=== PATIENT | male | born 1950 | race Caucasian/White ===

== ENCOUNTER → 2020-08-19 | Day surgery (SDC) | payer MEDICARE ==
[2020-08-14 10:17] LABS: BASOPHILS # (AUTO) 0.1 (0.0-0.1); BASOPHILS % 1.1 % (0.0-1.0); EOSINOPHILS # (AUTO) 0.2 (0.0-0.4); EOSINOPHILS % 3.7 % (0.0-6.0); HEMATOCRIT 44.3 % (38.2-49.6); HEMOGLOBIN 14.6 g/dL (14.0-18.0); LYMPHOCYTES # (AUTO) 1.7 (1.0-3.2); LYMPHOCYTES % 31.2 % (18.0-39.1); MEAN CORPUSCULAR HEMOGLOBIN 29.1 pg (28-32); MEAN CORPUSCULAR VOLUME 88.2 fL (81-99); MONOCYTES # (AUTO) 0.5 (0.2-0.8); MONOCYTES % 8.5 % (4.4-11.3); NEUTROPHILS % 55.3 % (38.7-80.0); PLATELET COUNT 150 x10e3/uL (140-360); RED BLOOD COUNT 5.02 x10e6/uL (4.3-5.7); RED CELL DISTRIBUTION WIDTH 12.7 % (11.7-14.4)
[2020-08-14 10:39] LABS: ALANINE AMINOTRANSFERASE 23 IU/L (0-55); ALBUMIN 3.8 g/dL (3.5-5.0); ALBUMIN/GLOBULIN RATIO 1.3 (0.8-2.0); ALKALINE PHOSPHATASE 77 IU/L (40-150); ANION GAP 15.1 mmol/L (8-16); BLOOD UREA NITROGEN 16 mg/dL (7-26); BUN/CREATININE RATIO 16 (6-25); CALCIUM 8.4 mg/dL (8.4-10.2); CARBON DIOXIDE 22 mmol/L (22-29); CHLORIDE 106 mmol/L (98-107); CREATININE, SERUM 0.99 mg/dL (0.72-1.25); EST GLOMERULAR FILTRATION RATE > 60 ML/MIN (60-); GLUCOSE 322 mg/dL (74-118); POTASSIUM 4.1 mmol/L (3.5-5.1); SODIUM 139 mmol/L (136-145)
[2020-08-19] VITALS (9 sets, daily range): BP systolic 96–126; BP diastolic 54–73
[~2020-08-19] VITALS: Ht 177.8 cm; Wt 93.0 kg
[~2020-08-19] MED LIST: ALPRAZOLAM 0.5 MG TAB ONE; ASPIR 8181 MG PO; ASPIRIN 325 MG TAB ONE; ASPIRIN EC81 MG PO; ATENOLOL50 MG PO; ATORVASTATIN CA40 MG PO; Aspirin PO; BIVALRIUDIN 250 MG/VIAL VIAL IV ONE; CENTRUM SILVER1 EAC3 PO; CRESTOR10 MG PO; DIPHENHYDRAMINE HCL 25 MG CAP ONE; FARXIGA10 MG PO; FENTANYL CITRATE/PF 100MCG/2 ML INJ ONE; HEPARIN SOD (PORCINE) 1000 UNIT/ML 30ML ONE; HEPARIN SOD/SOD CHLORIDE 2,000 ML ONE; IOPAMIDOL 370 MG/ML 200 ML INFUS..BTL INJ ONE; JANUVIA100 MG PO; LIDOCAINE HCL 2% LOCAL 20 ML VIAL ONE; METFORMIN HCL1000 MG PO; METFORMIN HCL500 MG PO; METOPROLOL SUCC50 MG PO; MIDAZOLAM HCL 2 MG/2 ML VIAL ONE; NITROGLYCERIN/D5W 200 MCG/ML 250 ML ONE; NORCO 7.5-3251 EACH PO; OMEGA 3 1,0001 EACH PO; PRASUGREL 10 MG TAB ONE; SODIUM CHLORIDE 0.9% 1000ML 1,000 ML ONE; SODIUM CHLORIDE 0.9% 50ML 50 ML ONE; VERAPAMIL HCL 2.5 MG/ML 2 ML VIAL ONE; VITAMIN B-12500 MCG PO
== END | disposition home or self-care (01) ==
LOC: CATH LAB 06:30
PROVIDERS: ATTEND Internal Medicine Interventional Cardiology
DX: I25.119 Atherosclerotic heart disease of native coronary artery with unspecified angina pectoris (principal); R94.39 Abnormal result of other cardiovascular function study; I73.9 Peripheral vascular disease, unspecified; I71.4 Abdominal aortic aneurysm, without rupture; E78.00 Pure hypercholesterolemia, unspecified; E78.5 Hyperlipidemia, unspecified; R09.89 Other specified symptoms and signs involving the circulatory and respiratory systems; I10 Essential (primary) hypertension; E11.9 Type 2 diabetes mellitus without complications; Z01.812 Encounter for preprocedural laboratory examination; Z20.822 Contact with and (suspected) exposure to COVID-19; Z79.84 Long term (current) use of oral hypoglycemic drugs; Z79.82 Long term (current) use of aspirin
CPT/HCPCS: 76937; 93458; C9600; 36415; 80053; 85025; 92928; 99152; 99153; C1725; C1874; C1887; J0583; J1644; J2001; J2250; J3010; J7030; Q9967; U0002

== ENCOUNTER → 2021-04-01 | Outpatient (CLI) | payer MEDICARE ==
[~2021-04-01] MED LIST changes: -ALPRAZOLAM 0.5 MG TAB ONE; -ASPIRIN 325 MG TAB ONE; -BIVALRIUDIN 250 MG/VIAL VIAL IV ONE; -DIPHENHYDRAMINE HCL 25 MG CAP ONE; -FENTANYL CITRATE/PF 100MCG/2 ML INJ ONE; -HEPARIN SOD (PORCINE) 1000 UNIT/ML 30ML ONE; -HEPARIN SOD/SOD CHLORIDE 2,000 ML ONE; -LIDOCAINE HCL 2% LOCAL 20 ML VIAL ONE; -MIDAZOLAM HCL 2 MG/2 ML VIAL ONE; -NITROGLYCERIN/D5W 200 MCG/ML 250 ML ONE; -PRASUGREL 10 MG TAB ONE; +SODIUM CHLORIDE 0.9% 100 ML ONE; -SODIUM CHLORIDE 0.9% 1000ML 1,000 ML ONE; -SODIUM CHLORIDE 0.9% 50ML 50 ML ONE; -VERAPAMIL HCL 2.5 MG/ML 2 ML VIAL ONE
[2021-04-01 08:21] LABS: CREATININE, SERUM 0.89 mg/dL (0.72-1.25)
== END ==
LOC: CT 07:38
PROVIDERS: ATTEND Nurse Practitioner Family
DX: I77.810 Thoracic aortic ectasia (principal)
CPT/HCPCS: 36415; 71275; 82565; 84520; J7050; Q9967

== ENCOUNTER 2021-07-30 11:46 | Inpatient (IN) | payer MEDICARE ==
[~2021-07-30] VITALS: Ht 177.8 cm; Wt 93.9 kg
[~2021-07-30 11:46] MED LIST changes: -IOPAMIDOL 370 MG/ML 200 ML INFUS..BTL INJ ONE; -SODIUM CHLORIDE 0.9% 100 ML ONE
[2021-07-30] MEDS ORDERED: VICTOZA 2-0.6 MG/0.1 (12:55)
[2021-07-30] MEDS ORDERED: ATORVASTATIN CA20 MG PO (12:55)
[2021-07-30] MEDS ORDERED: GLIMEPIRIDE4 MG (12:55)
[2021-07-30] MEDS ORDERED: SODIUM CHLORIDE 0.9% 1000ML 1,000 ML IV SCH (14:00)
[2021-07-30] MEDS ORDERED: DEXAMETHASONE PHOS 4MG/ML 5ML MULTIDOSE VIAL IV ONE (14:00)
[2021-07-30] MEDS ORDERED: CEFTRIAXONE 1 GM in SODIUM CHLORIDE 0.9% 50ML 50 ML IV ONE (14:00)
[2021-07-30] MEDS ORDERED: SODIUM CHLORIDE 0.9% 50ML 50 ML ONE ×2 (14:14→14:29)
[2021-07-30] MEDS ORDERED: IOPAMIDOL 370 MG/ML 200 ML INFUS..BTL INJ ONE (14:14)
[2021-07-30] MEDS ORDERED: DEXAMETHASONE SOD PHOS INJ 4 MG/ML SDV ONE (14:29)
[2021-07-30] MEDS ORDERED: CEFTRIAXONE 1 GM VIAL ONE (14:30)
[2021-07-30] MEDS ORDERED: SODIUM CHLORIDE 0.9% 1000ML 1,000 ML ONE (14:30)
[2021-07-30] MEDS ORDERED: SODIUM CHLORIDE 0.9% 250ML 250 ML ONE (14:30)
[2021-07-30] MEDS ORDERED: ASPIRIN 81 MG CHEW TAB PO ONE (14:45)
[2021-07-30] MEDS ORDERED: SODIUM CHLORIDE FLUSH 10 ML SYR INJ PRN (14:45)
[2021-07-30] MEDS ORDERED: DEXTROSE 50% SYRINGE 50 ML IV PRN (14:45)
[2021-07-30] MEDS ORDERED: ASPIRIN 81 MG CHEW TAB ONE (15:15)
[2021-07-30] MEDS ORDERED: INSULIN REGULAR, HUMAN 100 UNIT/1 ML ONE (15:15)
[2021-07-30] MEDS: INSULIN LISPRO 100 UNIT/1 ML 3ML VIAL SQ SCH ×2 (16:30→20:41)
[2021-07-30 17:52] VITALS: BP 147/103
[2021-07-30 18:17] VITALS: BP 147/103
[2021-07-30 18:20] VITALS: BP 147/103
[2021-07-30] MEDS ORDERED: CRESTOR10 MG PO (18:21)
[2021-07-30] MEDS ORDERED: NEURONTIN100 MG PO (18:21)
[2021-07-30 18:22] VITALS: BP 147/103
[2021-07-30] MEDS ORDERED: HYDRALAZINE HCL 20 MG/ML VIAL IV PRN (18:45)
[2021-07-30 19:25] LABS: CREATINE KINASE MB 2.2 ng/mL (0-5.0)
[2021-07-30 21:36] VITALS: BP 125/94
[2021-07-30 21:49] VITALS: BP 125/94
[2021-07-31] VITALS (9 sets, daily range): BP systolic 121–138; BP diastolic 72–92
[2021-07-31] MEDS ORDERED: METOPROLOL TARTRATE INJ 1 MG/ML VIAL IV PRN (04:30)
[2021-07-31] MEDS: INSULIN LISPRO 100 UNIT/1 ML 3ML VIAL SQ SCH ×4 (07:30→21:27)
[2021-07-31 08:14] LABS: CREATINE KINASE MB 2.7 ng/mL (0-5.0)
[2021-07-31] MEDS ORDERED: SIMVASTATIN 20 MG TAB PO SCH (09:00)
[2021-07-31] MEDS: NON-FORMULARY MEDICATION (Dapagliflozin Propanediol (Farxiga) 10 MG) PO SCH (09:00)
[2021-07-31] MEDS: GABAPENTIN 100 MG CAP PO SCH (09:43)
[2021-07-31] MEDS: ASPIRIN 81 MG ENTERIC COATED PO SCH (09:43)
[2021-07-31] MEDS: CEFTRIAXONE 1 GM in SODIUM CHLORIDE 0.9% 50ML 50 ML IV SCH (09:43)
[2021-07-31] MEDS: MULTIVITAMINS/MINERALS TAB PO SCH (09:43)
[2021-07-31] MEDS: METOPROLOL SUCCINATE 50 MG TAB XL PO SCH (09:44)
[2021-07-31] MEDS: CYANOCOBALAMIN 1,000 MCG TAB PO SCH (09:44)
[2021-07-31] MEDS: OMEGA 3 POLYUNSAT FATTY ACIDS 1000 MG SOFTGEL PO SCH (09:44)
[2021-07-31] MEDS ORDERED: SODIUM CHLORIDE 0.9% 50ML 50 ML ONE (09:58)
[2021-07-31] MEDS ORDERED: DEXAMETHASONE SOD PHOS 10 MG/1 ML VIAL ONE (13:50)
[2021-07-31] MEDS ORDERED: REMDESIVIR IV ONE (13:52)
[2021-07-31] MEDS: DEXAMETHASONE SOD PHOS 10 MG/1 ML VIAL IV SCH (13:53)
[2021-07-31] MEDS ORDERED: SODIUM CHLORIDE 0.9% 100 ML ONE (13:53)
[2021-07-31] MEDS ORDERED: DEXTROSE 50% SYRINGE 50 ML IV PRN (14:00)
[2021-07-31] MEDS ORDERED: REMDESIVIR 100MG 200 MG in SODIUM CHLORIDE 0.9% 100 ML IV ONE (14:00)
[2021-07-31 14:48] LABS: ALBUMIN/GLOBULIN RATIO 0.8 (0.8-2.0); ANION GAP 15.2 mmol/L (8-16); CALCIUM 8.8 mg/dL (8.4-10.2); CREATININE, SERUM 0.92 mg/dL (0.72-1.25); POTASSIUM 4.2 mmol/L (3.5-5.1)
[2021-07-31 15:12] LABS: CREATINE KINASE MB 2.9 ng/mL (0-5.0)
[2021-07-31] MEDS: GLIMEPIRIDE 2 MG TAB PO SCH (17:24)
[2021-07-31] MEDS: ENOXAPARIN SOD INJ 40 MG/0.4 ML SYR SC SCH (17:25)
[2021-08-01] VITALS (9 sets, daily range): BP systolic 111–129; BP diastolic 67–79
[2021-08-01] MEDS: INSULIN LISPRO 100 UNIT/1 ML 3ML VIAL SQ SCH ×4 (08:30→20:35)
[2021-08-01] MEDS: NON-FORMULARY MEDICATION (Dapagliflozin Propanediol (Farxiga) 10 MG) PO SCH (09:00)
[2021-08-01] MEDS: DEXAMETHASONE SOD PHOS 10 MG/1 ML VIAL IV SCH (10:37)
[2021-08-01] MEDS: GLIMEPIRIDE 2 MG TAB PO SCH ×2 (10:37→18:37)
[2021-08-01] MEDS: METOPROLOL SUCCINATE 50 MG TAB XL PO SCH (10:38)
[2021-08-01] MEDS: CYANOCOBALAMIN 1,000 MCG TAB PO SCH (10:38)
[2021-08-01] MEDS: OMEGA 3 POLYUNSAT FATTY ACIDS 1000 MG SOFTGEL PO SCH (10:38)
[2021-08-01] MEDS: ASPIRIN 81 MG ENTERIC COATED PO SCH (10:38)
[2021-08-01] MEDS: MULTIVITAMINS/MINERALS TAB PO SCH (10:38)
[2021-08-01] MEDS: GABAPENTIN 100 MG CAP PO SCH (10:38)
[2021-08-01] MEDS: CEFTRIAXONE 1 GM in SODIUM CHLORIDE 0.9% 50ML 50 ML IV SCH (10:38)
[2021-08-01] MEDS: METFORMIN HCL 500 MG TAB PO SCH ×2 (10:39→18:37)
[2021-08-01 11:38] LABS: BASOPHILS % 0.2 % (0.0-1.0); HEMATOCRIT 42.1 % (38.2-49.6); HEMOGLOBIN 13.6 g/dL (14.0-18.0); LYMPHOCYTES # (AUTO) 1.3 (1.0-3.2); MEAN CORPUSCULAR HEMOGLOBIN 28.9 pg (28-32); MEAN CORPUSCULAR HGB CONC 32.3 g/dL (31-35); MEAN CORPUSCULAR VOLUME 89.6 fL (81-99); MONOCYTES # (AUTO) 0.6 (0.2-0.8); MONOCYTES % 5.7 % (4.4-11.3); NEUTROPHILS # (AUTO) 8.3 (2.1-6.9); NEUTROPHILS % 80.4 % (38.7-80.0); PLATELET COUNT 152 x10e3/uL (140-360); RED CELL DISTRIBUTION WIDTH 13.1 % (11.7-14.4)
[2021-08-01] MEDS ORDERED: GUAIFENESIN 200 MG/10 ML UDC PO PRN (11:45)
[2021-08-01 12:05] LABS: ALBUMIN 2.8 g/dL (3.5-5.0); ALBUMIN/GLOBULIN RATIO 0.8 (0.8-2.0); ANION GAP 12.9 mmol/L (8-16); CALCIUM 8.8 mg/dL (8.4-10.2); CREATININE, SERUM 0.83 mg/dL (0.72-1.25); POTASSIUM 3.9 mmol/L (3.5-5.1)
[2021-08-01] MEDS: REMDESIVIR 100MG 100 MG in SODIUM CHLORIDE 0.9% 100 ML IV SCH (18:37)
[2021-08-01] MEDS: ENOXAPARIN SOD INJ 40 MG/0.4 ML SYR SC SCH (18:37)
[2021-08-02] VITALS (9 sets, daily range): BP systolic 100–112; BP diastolic 64–95
[2021-08-02] MEDS: INSULIN LISPRO 100 UNIT/1 ML 3ML VIAL SQ SCH ×4 (07:30→20:35)
[2021-08-02 08:08] LABS: BASOPHILS % 0.1 % (0.0-1.0); HEMATOCRIT 45.2 % (38.2-49.6); LYMPHOCYTES # (AUTO) 1.6 (1.0-3.2); LYMPHOCYTES % 15.3 % (18.0-39.1); MEAN CORPUSCULAR HEMOGLOBIN 28.9 pg (28-32); MEAN CORPUSCULAR VOLUME 93.4 fL (81-99); MONOCYTES # (AUTO) 0.7 (0.2-0.8); NEUTROPHILS # (AUTO) 8.1 (2.1-6.9); NEUTROPHILS % 77.2 % (38.7-80.0); PLATELET COUNT 171 x10e3/uL (140-360); RED BLOOD COUNT 4.84 x10e6/uL (4.3-5.7); RED CELL DISTRIBUTION WIDTH 13.2 % (11.7-14.4)
[2021-08-02 08:32] LABS: ALBUMIN 2.8 g/dL (3.5-5.0); ALBUMIN/GLOBULIN RATIO 0.8 (0.8-2.0); ANION GAP 14.9 mmol/L (8-16); CALCIUM 8.8 mg/dL (8.4-10.2); CREATININE, SERUM 0.85 mg/dL (0.72-1.25); MAGNESIUM 1.9 MG/DL (1.3-2.1); POTASSIUM 3.9 mmol/L (3.5-5.1)
[2021-08-02] MEDS: METFORMIN HCL 500 MG TAB PO SCH ×2 (08:49→17:30)
[2021-08-02] MEDS: NON-FORMULARY MEDICATION (Dapagliflozin Propanediol (Farxiga) 10 MG) PO SCH (08:49)
[2021-08-02] MEDS: GLIMEPIRIDE 2 MG TAB PO SCH ×2 (08:49→17:30)
[2021-08-02] MEDS: MULTIVITAMINS/MINERALS TAB PO SCH (08:50)
[2021-08-02] MEDS: GABAPENTIN 100 MG CAP PO SCH (08:50)
[2021-08-02] MEDS: METOPROLOL SUCCINATE 50 MG TAB XL PO SCH (08:50)
[2021-08-02] MEDS: CYANOCOBALAMIN 1,000 MCG TAB PO SCH (08:50)
[2021-08-02] MEDS: OMEGA 3 POLYUNSAT FATTY ACIDS 1000 MG SOFTGEL PO SCH (08:50)
[2021-08-02] MEDS: ASPIRIN 81 MG ENTERIC COATED PO SCH (08:50)
[2021-08-02] MEDS: DEXAMETHASONE SOD PHOS 10 MG/1 ML VIAL IV SCH (08:52)
[2021-08-02] MEDS: CEFTRIAXONE 1 GM in SODIUM CHLORIDE 0.9% 50ML 50 ML IV SCH (08:54)
[2021-08-02] MEDS: REMDESIVIR 100MG 100 MG in SODIUM CHLORIDE 0.9% 100 ML IV SCH (12:36)
[2021-08-02] MEDS: ENOXAPARIN SOD INJ 40 MG/0.4 ML SYR SC SCH (17:30)
[2021-08-03 04:00] VITALS: BP 107/74
[2021-08-03 06:46] LABS: ANION GAP 12.8 mmol/L (8-16); CALCIUM 9.1 mg/dL (8.4-10.2); CREATININE, SERUM 0.78 mg/dL (0.72-1.25); POTASSIUM 3.8 mmol/L (3.5-5.1)
[2021-08-03 07:13] LABS: BASOPHILS % 0.1 % (0.0-1.0); EOSINOPHILS % 0.1 % (0.0-6.0); HEMATOCRIT 46.1 % (38.2-49.6); HEMOGLOBIN 14.3 g/dL (14.0-18.0); LYMPHOCYTES # (AUTO) 1.8 (1.0-3.2); LYMPHOCYTES % 18.1 % (18.0-39.1); MEAN CORPUSCULAR HEMOGLOBIN 28.5 pg (28-32); MONOCYTES # (AUTO) 0.6 (0.2-0.8); MONOCYTES % 6.4 % (4.4-11.3); NEUTROPHILS # (AUTO) 7.4 (2.1-6.9); NEUTROPHILS % 74.8 % (38.7-80.0); PLATELET COUNT 194 x10e3/uL (140-360); RED BLOOD COUNT 5.01 x10e6/uL (4.3-5.7); RED CELL DISTRIBUTION WIDTH 13.3 % (11.7-14.4)
[2021-08-03] MEDS: INSULIN LISPRO 100 UNIT/1 ML 3ML VIAL SQ SCH ×3 (07:30→16:30)
[2021-08-03] MEDS: METFORMIN HCL 500 MG TAB PO SCH ×2 (08:00→16:43)
[2021-08-03] MEDS: GLIMEPIRIDE 2 MG TAB PO SCH ×2 (08:00→16:43)
[2021-08-03 08:04] VITALS: BP 114/65
[2021-08-03 08:40] VITALS: BP 114/65
[2021-08-03] MEDS: OMEGA 3 POLYUNSAT FATTY ACIDS 1000 MG SOFTGEL PO SCH (08:53)
[2021-08-03] MEDS: ASPIRIN 81 MG ENTERIC COATED PO SCH (08:53)
[2021-08-03] MEDS: DEXAMETHASONE SOD PHOS 10 MG/1 ML VIAL IV SCH (08:53)
[2021-08-03] MEDS: GABAPENTIN 100 MG CAP PO SCH (08:53)
[2021-08-03] MEDS: MULTIVITAMINS/MINERALS TAB PO SCH (08:53)
[2021-08-03] MEDS: METOPROLOL SUCCINATE 50 MG TAB XL PO SCH (08:54)
[2021-08-03] MEDS: CYANOCOBALAMIN 1,000 MCG TAB PO SCH (08:54)
[2021-08-03] MEDS: NON-FORMULARY MEDICATION (Dapagliflozin Propanediol (Farxiga) 10 MG) PO SCH (09:00)
[2021-08-03 12:02] VITALS: BP 105/63
[2021-08-03] MEDS ORDERED: DEXAMETHASONE4 MG PO (12:37)
[2021-08-03] MEDS: REMDESIVIR 100MG 100 MG in SODIUM CHLORIDE 0.9% 100 ML IV SCH (14:00)
[2021-08-03 15:43] VITALS: BP 112/64
[2021-08-03] MEDS: ENOXAPARIN SOD INJ 40 MG/0.4 ML SYR SC SCH (16:43)
== END 2021-08-03 17:06 | disposition home or self-care (01) | DRG 177 ==
LOC: FSED 12:42 → ERHOLD 14:43 → IMCU 17:49
PROVIDERS: ADMIT Internal Medicine; ATTEND Internal Medicine
PROC: 3E0333Z Introduction of Anti-inflammatory into Peripheral Vein, Percutaneous Approach (ICD-10-PCS; 2021-07-30)
PROC: XW033E5 Introduction of Remdesivir Anti-infective into Peripheral Vein, Percutaneous Approach, New Technology Group 5 (ICD-10-PCS; principal; 2021-07-31)
DX: U07.1 COVID-19 (principal); J12.82 Pneumonia due to coronavirus disease 2019; J96.01 Acute respiratory failure with hypoxia; I10 Essential (primary) hypertension; E78.5 Hyperlipidemia, unspecified; I25.10 Atherosclerotic heart disease of native coronary artery without angina pectoris; Z95.5 Presence of coronary angioplasty implant and graft; Z79.84 Long term (current) use of oral hypoglycemic drugs; I77.810 Thoracic aortic ectasia; E11.42 Type 2 diabetes mellitus with diabetic polyneuropathy; E78.00 Pure hypercholesterolemia, unspecified
CPT/HCPCS: 36415; 71046; 71260; 80048; 80053; 81003; 82550; 82553; 82948; 83735; 83880; 84484; 85025; 85379; 93005; 94799; 96372; 99251; 99284; J0248; J0456; J0696; J1100; J1650; J1817; J7030; J7050; Q9967; U0002

== ENCOUNTER 2021-08-07 15:08 | Inpatient (IN) | payer MEDICARE ==
[~2021-08-07] VITALS: Ht 177.8 cm; Wt 92.1 kg
[~2021-08-07 15:08] MED LIST changes: +ATORVASTATIN CA20 MG PO; +DEXAMETHASONE4 MG PO; +GLIMEPIRIDE4 MG; +NEURONTIN100 MG PO; +VICTOZA 2-0.6 MG/0.1
[2021-08-07] MEDS ORDERED: DEXAMETHASONE SOD PHOS INJ 4 MG/ML SDV IV ONE (17:00)
[2021-08-07] MEDS ORDERED: CEFTRIAXONE 1 GM in SODIUM CHLORIDE 0.9% 50ML 50 ML IV ONE (17:00)
[2021-08-07] MEDS ORDERED: SODIUM CHLORIDE 0.9% 100 ML ONE (17:44)
[2021-08-07] MEDS ORDERED: DEXAMETHASONE SOD PHOS INJ 4 MG/ML SDV ONE (17:44)
[2021-08-07] MEDS ORDERED: SODIUM CHLORIDE 0.9% 50ML 50 ML ONE (17:44)
[2021-08-07] MEDS ORDERED: CEFTRIAXONE 1 GM VIAL ONE (17:45)
[2021-08-07] MEDS ORDERED: SODIUM CHLORIDE FLUSH 10 ML SYR INJ PRN (18:15)
[2021-08-07] MEDS ORDERED: DEXTROSE 50% SYRINGE 50 ML IV PRN (18:15)
[2021-08-07 21:16] VITALS: BP 113/74
[2021-08-07] MEDS: INSULIN LISPRO 100 UNIT/1 ML 3ML VIAL SQ SCH (21:27)
[2021-08-07 22:49] VITALS: BP 113/74
[2021-08-08 00:07] VITALS: BP 134/85
[2021-08-08 06:43] VITALS: BP 131/77
[2021-08-08 07:04] LABS: BASOPHILS % 0.1 % (0.0-1.0); EOSINOPHILS % 0.1 % (0.0-6.0); HEMATOCRIT 43.1 % (38.2-49.6); LYMPHOCYTES # (AUTO) 1.2 (1.0-3.2); LYMPHOCYTES % 14.9 % (18.0-39.1); MEAN CORPUSCULAR HEMOGLOBIN 28.9 pg (28-32); MEAN CORPUSCULAR HGB CONC 32.5 g/dL (31-35); MEAN CORPUSCULAR VOLUME 88.9 fL (81-99); MONOCYTES # (AUTO) 0.7 (0.2-0.8); MONOCYTES % 8.2 % (4.4-11.3); NEUTROPHILS % 75.6 % (38.7-80.0); PLATELET COUNT 264 x10e3/uL (140-360); RED BLOOD COUNT 4.85 x10e6/uL (4.3-5.7); RED CELL DISTRIBUTION WIDTH 12.9 % (11.7-14.4)
[2021-08-08] MEDS: INSULIN LISPRO 100 UNIT/1 ML 3ML VIAL SQ SCH ×4 (07:30→22:52)
[2021-08-08 07:35] LABS: CREATINE KINASE MB 1.2 ng/mL (0-5.0)
[2021-08-08 07:36] LABS: ALBUMIN 2.9 g/dL (3.5-5.0); ALBUMIN/GLOBULIN RATIO 0.8 (0.8-2.0); ANION GAP 14.1 mmol/L (8-16); CALCIUM 8.9 mg/dL (8.4-10.2); CREATININE, SERUM 0.79 mg/dL (0.72-1.25); POTASSIUM 4.1 mmol/L (3.5-5.1)
[2021-08-08 08:00] VITALS: BP_SYST 131; BP_SYST 141; BP_DIAS 75; BP_DIAS 77
[2021-08-08] MEDS: METFORMIN HCL 500 MG TAB PO SCH ×2 (08:35→18:16)
[2021-08-08] MEDS: SIMVASTATIN 40 MG TAB PO SCH (08:35)
[2021-08-08] MEDS: ASPIRIN 81 MG ENTERIC COATED PO SCH (08:35)
[2021-08-08] MEDS: METOPROLOL SUCCINATE 50 MG TAB XL PO SCH (08:35)
[2021-08-08] MEDS: GABAPENTIN 100 MG CAP PO SCH (08:41)
[2021-08-08 14:17] LABS: CREATINE KINASE MB 1.6 ng/mL (0-5.0)
[2021-08-08] MEDS ORDERED: SODIUM CHLORIDE 0.9% 1000ML 1,000 ML ONE (15:53)
[2021-08-08] MEDS ORDERED: SODIUM CHLORIDE 0.9% 50ML 50 ML ONE (16:22)
[2021-08-08] MEDS ORDERED: IOPAMIDOL 370 MG/ML 200 ML INFUS..BTL INJ ONE (16:23)
[2021-08-08] MEDS ORDERED: CEFTRIAXONE 1 GM in SODIUM CHLORIDE 0.9% 50ML 50 ML IV SCH (17:00)
[2021-08-08 17:37] VITALS: BP 110/76
[2021-08-08] MEDS ORDERED: HEPARIN SOD (PORCINE) 5,000 UNIT/ML VIAL IV ONE (18:15)
[2021-08-08] MEDS: PIPERACILLIN/TAZOBACTAM 3.375 GM in SODIUM CHLORIDE 0.9% 50ML 50 ML IV SCH (18:16)
[2021-08-08] MEDS: LINEZOLID 600 MG/D5W 300ML 300 ML IV SCH (18:16)
[2021-08-08] MEDS: DEXAMETHASONE SOD PHOS 10 MG/1 ML VIAL IV SCH (18:16)
[2021-08-08] MEDS ORDERED: HEPARIN 25,000 UNIT DRIP IV ONE (20:33)
[2021-08-08 20:37] VITALS: BP 117/102
[2021-08-08 20:56] LABS: INR 1.07; PROTHROMBIN TIME 14.7 seconds (11.9-14.5)
[2021-08-08 21:00] VITALS: BP 117/102
[2021-08-08] MEDS: HEPARIN 25,000 UNIT 1,500 UNIT in DEXTROSE 5% 250ML 250 ML IV SCH (21:07)
[2021-08-09] VITALS (8 sets, daily range): BP systolic 99–151; BP diastolic 60–84
[2021-08-09] MEDS: PIPERACILLIN/TAZOBACTAM 3.375 GM in SODIUM CHLORIDE 0.9% 50ML 50 ML IV SCH ×5 (00:37→23:24)
[2021-08-09] MEDS: LINEZOLID 600 MG/D5W 300ML 300 ML IV SCH ×2 (02:24→12:31)
[2021-08-09] MEDS: INSULIN LISPRO 100 UNIT/1 ML 3ML VIAL SQ SCH ×4 (07:30→22:51)
[2021-08-09] MEDS: ASPIRIN 81 MG ENTERIC COATED PO SCH (10:01)
[2021-08-09] MEDS: METFORMIN HCL 500 MG TAB PO SCH ×2 (10:01→17:55)
[2021-08-09] MEDS: METOPROLOL SUCCINATE 50 MG TAB XL PO SCH (10:01)
[2021-08-09] MEDS: SIMVASTATIN 40 MG TAB PO SCH (10:01)
[2021-08-09] MEDS: GABAPENTIN 100 MG CAP PO SCH (10:01)
[2021-08-09] MEDS: HEPARIN 25,000 UNIT 1,500 UNIT in DEXTROSE 5% 250ML 250 ML IV SCH (13:00)
[2021-08-09] MEDS: DEXAMETHASONE SOD PHOS 10 MG/1 ML VIAL IV SCH (17:55)
[2021-08-09 21:43] LABS: CREATINE KINASE MB 1.2 ng/mL (0-5.0)
[2021-08-10] VITALS (7 sets, daily range): BP systolic 90–146; BP diastolic 56–88
[2021-08-10] MEDS: LINEZOLID 600 MG/D5W 300ML 300 ML IV SCH ×2 (03:52→16:29)
[2021-08-10 04:32] LABS: BASOPHILS % 0.1 % (0.0-1.0); HEMATOCRIT 42.9 % (38.2-49.6); LYMPHOCYTES % 11.1 % (18.0-39.1); MEAN CORPUSCULAR HEMOGLOBIN 28.9 pg (28-32); MEAN CORPUSCULAR HGB CONC 32.6 g/dL (31-35); MEAN CORPUSCULAR VOLUME 88.6 fL (81-99); MONOCYTES # (AUTO) 0.6 (0.2-0.8); MONOCYTES % 6.7 % (4.4-11.3); NEUTROPHILS # (AUTO) 7.4 (2.1-6.9); NEUTROPHILS % 81.2 % (38.7-80.0); PLATELET COUNT 226 x10e3/uL (140-360); RED BLOOD COUNT 4.84 x10e6/uL (4.3-5.7); RED CELL DISTRIBUTION WIDTH 12.9 % (11.7-14.4)
[2021-08-10 04:51] LABS: ALBUMIN 2.7 g/dL (3.5-5.0); ALBUMIN/GLOBULIN RATIO 0.8 (0.8-2.0); CALCIUM 8.4 mg/dL (8.4-10.2); CREATININE, SERUM 0.73 mg/dL (0.72-1.25)
[2021-08-10] MEDS: PIPERACILLIN/TAZOBACTAM 3.375 GM in SODIUM CHLORIDE 0.9% 50ML 50 ML IV SCH ×4 (07:06→22:23)
[2021-08-10] MEDS: ASPIRIN 81 MG ENTERIC COATED PO SCH (10:19)
[2021-08-10] MEDS: GABAPENTIN 100 MG CAP PO SCH (10:19)
[2021-08-10] MEDS: METFORMIN HCL 500 MG TAB PO SCH ×2 (10:19→16:29)
[2021-08-10] MEDS: METOPROLOL SUCCINATE 50 MG TAB XL PO SCH (10:20)
[2021-08-10] MEDS: SIMVASTATIN 40 MG TAB PO SCH (10:20)
[2021-08-10] MEDS: INSULIN LISPRO 100 UNIT/1 ML 3ML VIAL SQ SCH ×4 (10:21→22:20)
[2021-08-10] MEDS: HEPARIN 25,000 UNIT 1,500 UNIT in DEXTROSE 5% 250ML 250 ML IV SCH (10:27)
[2021-08-10] MEDS: DEXAMETHASONE SOD PHOS 10 MG/1 ML VIAL IV SCH (16:29)
[2021-08-11 01:04] VITALS: BP 110/73
[2021-08-11 05:18] VITALS: BP 115/73
[2021-08-11] MEDS: PIPERACILLIN/TAZOBACTAM 3.375 GM in SODIUM CHLORIDE 0.9% 50ML 50 ML IV SCH (05:38)
[2021-08-11] MEDS ORDERED: LINEZOLID 600 MG TAB PO SCH (06:00)
[2021-08-11] MEDS: INSULIN LISPRO 100 UNIT/1 ML 3ML VIAL SQ SCH (07:30)
[2021-08-11 07:47] VITALS: BP 106/69
[2021-08-11 08:55] VITALS: BP 119/70
[2021-08-11] MEDS: METFORMIN HCL 500 MG TAB PO SCH (09:28)
[2021-08-11] MEDS: GABAPENTIN 100 MG CAP PO SCH (09:28)
[2021-08-11] MEDS: ASPIRIN 81 MG ENTERIC COATED PO SCH (09:28)
[2021-08-11] MEDS: SIMVASTATIN 40 MG TAB PO SCH (09:29)
[2021-08-11] MEDS: METOPROLOL SUCCINATE 50 MG TAB XL PO SCH (09:29)
[2021-08-11] MEDS ORDERED: ELIQUIS5 MG PO (09:44)
[2021-08-11] MEDS ORDERED: KEFLEX125 MG/5 M PO (09:44)
== END 2021-08-11 10:20 | disposition home or self-care (01) | DRG 177 ==
LOC: FSED 15:20 → ERHOLD 18:08 → IMCU 20:26
PROVIDERS: ADMIT Internal Medicine; ATTEND Internal Medicine
PROC: 3E0333Z Introduction of Anti-inflammatory into Peripheral Vein, Percutaneous Approach (ICD-10-PCS; principal; 2021-08-07)
PROC: 5A0935A Assistance with Respiratory Ventilation, Less than 24 Consecutive Hours, High Flow/Velocity Cannula (ICD-10-PCS; 2021-08-08)
DX: U07.1 COVID-19 (principal); J12.82 Pneumonia due to coronavirus disease 2019; J96.01 Acute respiratory failure with hypoxia; J15.9 Unspecified bacterial pneumonia; I26.99 Other pulmonary embolism without acute cor pulmonale; I25.10 Atherosclerotic heart disease of native coronary artery without angina pectoris; I10 Essential (primary) hypertension; E78.5 Hyperlipidemia, unspecified; E11.65 Type 2 diabetes mellitus with hyperglycemia; Z95.5 Presence of coronary angioplasty implant and graft; Z82.49 Family history of ischemic heart disease and other diseases of the circulatory system; E11.42 Type 2 diabetes mellitus with diabetic polyneuropathy; Z79.82 Long term (current) use of aspirin; Z79.84 Long term (current) use of oral hypoglycemic drugs
CPT/HCPCS: 36415; 71045; 71046; 71260; 80053; 82550; 82553; 82948; 83735; 83880; 84484; 85025; 85610; 85730; 94799; 96372; 99251; 99284; J0456; J0696; J1100; J1644; J2020; J2543; J7030; J7050; Q9967; U0002

== ENCOUNTER → 2021-10-28 | Outpatient (CLI) | payer MEDICARE ==
[~2021-10-28] MED LIST changes: +ELIQUIS5 MG PO; +IOPAMIDOL 370 MG/ML 100 ML INFUS..BTL INJ ONE; +KEFLEX125 MG/5 M PO; +SODIUM CHLORIDE 0.9% 50ML 50 ML ONE
[2021-10-28 09:12] LABS: CREATININE, SERUM 0.99 mg/dL (0.72-1.25)
== END ==
LOC: CT 08:11
PROVIDERS: ATTEND Internal Medicine
DX: I26.99 Other pulmonary embolism without acute cor pulmonale (principal)
CPT/HCPCS: 36415; 71260; 82565; 84520; Q9967

== ENCOUNTER → 2023-10-19 | Day surgery (SDC) | payer MEDICARE ==
[2023-10-13 11:17] LABS: BASOPHILS % 0.7 % (0.0-1.0); EOSINOPHILS % 6.5 % (0.0-6.0); HEMATOCRIT 45.1 % (38.2-49.6); HEMOGLOBIN 14.4 g/dL (14.0-18.0); LYMPHOCYTES % 25.4 % (18.0-39.1); MEAN CORPUSCULAR HEMOGLOBIN 28.7 pg (28-32); MEAN CORPUSCULAR HGB CONC 31.9 g/dL (31-35); MEAN CORPUSCULAR VOLUME 89.8 fL (81-99); MONOCYTES % 6.6 % (4.4-11.3); NEUTROPHILS # (AUTO) 5.1 (2.1-6.9); NEUTROPHILS % 60.6 % (38.7-80.0); PLATELET COUNT 179 x10e3/uL (140-360); RED BLOOD COUNT 5.02 x10e6/uL (4.3-5.7); RED CELL DISTRIBUTION WIDTH 13.5 % (11.7-14.4); WHITE BLOOD COUNT 8.44 x10e3/uL (4.8-10.8)
[2023-10-13 11:18] LABS: BASOPHILS # (AUTO) 0.1 (0.0-0.1); EOSINOPHILS # (AUTO) 0.6 (0.0-0.4); LYMPHOCYTES # (AUTO) 2.1 (1.0-3.2); MONOCYTES # (AUTO) 0.6 (0.2-0.8)
[2023-10-13 11:41] LABS: ANION GAP 15.5 mmol/L (8-16); CALCIUM 10.1 mg/dL (8.4-10.2); CREATININE, SERUM 1.02 mg/dL (0.72-1.25); POTASSIUM 4.5 mmol/L (3.5-5.1)
[~2023-10-19] MED LIST changes: +AMIODARONE HCL200 MG PO; +CEFTIN PO; +CEFTRIAXONE 1 GM VIAL ONE; +CIPRO500 MG PO; +DEXAMETHASONE SOD PHOS INJ 4 MG/ML SDV ONE; +DULCOLAX SUPP10 MG PR; +FENTANYL CITRATE/PF 100MCG/2 ML INJ ONE; +GEMTESA75 MG; -IOPAMIDOL 370 MG/ML 100 ML INFUS..BTL INJ ONE; +IOPAMIDOL 610MG/1ML 300 MG/ML VIAL IV ONE; +LEVEMIR100 UNIT/1 SQ; +LIDOCAINE HCL 2% LOCAL INJ 5 ML SDV VIAL INJ ONE; +METOPROLOL TART50 MG PO; +MIRALAX17 GM PO; +ONDANSETRON HCL INJ 2MG/ML 2ML 2 MG/ML VIAL ONE; +OZEMPIC1 MG/0.71; +PHENAZOPYRIDINE HCL 100 MG TAB ONE; +PROPOFOL IV EMULSION 10 MG/ML 20 ML VIAL ONE; +SEVOFLURANE INHAL SOLN 250 ML PEN BTL ONE; -SODIUM CHLORIDE 0.9% 50ML 50 ML ONE; +TYLENOL 3 PO; +VESICARE5 MG PO
[2023-10-19] MEDS: LACTATED RINGER'S 1,000 ML ONE (06:29)
[2023-10-19] MEDS: CEFTRIAXONE 1 GM VIAL ONE (06:29)
[2023-10-19] MEDS: GENTAMICIN 80MG/NS 100 ML 200 ML IV ONE (06:29)
[2023-10-19 09:01] VITALS: TEMP 97.8
[2023-10-19] MEDS: PHENAZOPYRIDINE HCL 100 MG TAB PO ONE ×2 (09:45)
[2023-10-19 10:05] VITALS: BP 149/79; PULSE 58; RESP 16; O2SAT 97
== END | disposition home or self-care (01) ==
LOC: OR 05:42
PROVIDERS: ATTEND Urology
DX: N20.1 Calculus of ureter (principal); N20.0 Calculus of kidney; N13.30 Unspecified hydronephrosis; Z46.6 Encounter for fitting and adjustment of urinary device; N40.0 Benign prostatic hyperplasia without lower urinary tract symptoms; N32.89 Other specified disorders of bladder; N28.89 Other specified disorders of kidney and ureter; G47.33 Obstructive sleep apnea (adult) (pediatric); I25.10 Atherosclerotic heart disease of native coronary artery without angina pectoris; I10 Essential (primary) hypertension; E78.5 Hyperlipidemia, unspecified; E11.9 Type 2 diabetes mellitus without complications; K75.9 Inflammatory liver disease, unspecified; Z01.810 Encounter for preprocedural cardiovascular examination; Z01.812 Encounter for preprocedural laboratory examination; Z01.818 Encounter for other preprocedural examination; Z79.02 Long term (current) use of antithrombotics/antiplatelets; Z79.82 Long term (current) use of aspirin; Z79.84 Long term (current) use of oral hypoglycemic drugs; Z79.85 Long-term (current) use of injectable non-insulin antidiabetic drugs; Z79.4 Long term (current) use of insulin; Z79.899 Other long term (current) drug therapy
CPT/HCPCS: 36415 ×2; 52332; 52352; 71046; 74018; 74420; 80048; 82948; 84550; 85025; 88300; 93005; C1769; C2617; J0696; J1100; J1580; J2001; J2405; J2704; J3010; J7121; Q9967

== ENCOUNTER 2023-10-31 19:07 | Inpatient (IN) | payer MEDICARE ==
[~2023-10-31] VITALS: Ht 177.8 cm; Wt 91.6 kg
[~2023-10-31 19:07] MED LIST changes: -AMIODARONE HCL200 MG PO; -CEFTRIAXONE 1 GM VIAL ONE; -CIPRO500 MG PO; -DEXAMETHASONE SOD PHOS INJ 4 MG/ML SDV ONE; -DULCOLAX SUPP10 MG PR; -FENTANYL CITRATE/PF 100MCG/2 ML INJ ONE; -IOPAMIDOL 610MG/1ML 300 MG/ML VIAL IV ONE; -LIDOCAINE HCL 2% LOCAL INJ 5 ML SDV VIAL INJ ONE; -METOPROLOL TART50 MG PO; -MIRALAX17 GM PO; -ONDANSETRON HCL INJ 2MG/ML 2ML 2 MG/ML VIAL ONE; -PHENAZOPYRIDINE HCL 100 MG TAB ONE; -PROPOFOL IV EMULSION 10 MG/ML 20 ML VIAL ONE; -SEVOFLURANE INHAL SOLN 250 ML PEN BTL ONE
[2023-10-31] MEDS ORDERED: SODIUM CHLORIDE 0.9% 100 ML ONE (20:26)
[2023-10-31] MEDS ORDERED: IOPAMIDOL 370 MG/ML 100 ML INFUS..BTL INJ ONE (20:26)
[2023-10-31 20:51] LABS: BASOPHILS # (AUTO) 0.1 (0.0-0.1); BASOPHILS % 0.3 % (0.0-1.0); EOSINOPHILS % 0.1 % (0.0-6.0); HEMOGLOBIN 14.2 g/dL (14.0-18.0); LYMPHOCYTES # (AUTO) 0.8 (1.0-3.2); LYMPHOCYTES % 3.6 % (18.0-39.1); MEAN CORPUSCULAR HEMOGLOBIN 28.7 pg (28-32); MEAN CORPUSCULAR HGB CONC 32.3 g/dL (31-35); MEAN CORPUSCULAR VOLUME 89.1 fL (81-99); MONOCYTES # (AUTO) 1.8 (0.2-0.8); MONOCYTES % 7.7 % (4.4-11.3); NEUTROPHILS % 87.3 % (38.7-80.0); PLATELET COUNT 156 x10e3/uL (140-360); RED BLOOD COUNT 4.94 x10e6/uL (4.3-5.7); RED CELL DISTRIBUTION WIDTH 14.2 % (11.7-14.4); WHITE BLOOD COUNT 22.87 x10e3/uL (4.8-10.8)
[2023-10-31 21:07] LABS: ALBUMIN 3.6 g/dL (3.5-5.0); ANION GAP 20.7 mmol/L (8-16); BILIRUBIN,TOTAL 0.8 mg/dL (0.2-1.2); CALCIUM 9.7 mg/dL (8.4-10.2); CREATININE, SERUM 1.24 mg/dL (0.72-1.25); POTASSIUM 3.7 mmol/L (3.5-5.1); TOTAL PROTEIN 7.2 g/dL (6.5-8.1); TROPONIN I 0.009 ng/mL (0-0.300)
[2023-10-31] MEDS: SODIUM CHLORIDE 0.9% 1000ML 1,000 ML IV STA (21:12)
[2023-10-31] MEDS: ACETAMINOPHEN 325 MG TAB PO STA (21:13)
[2023-10-31 22:03] LABS: BILIRUBIN,URINE NEGATIVE (NEGATIVE); CLARITY,URINE CLEAR (CLEAR); COLOR,URINE YELLOW (YELLOW); GLUCOSE, URINE 500 (NEGATIVE); KETONES,URINE 2+ (NEGATIVE); LEUKOCYTE ESTERASE ,URINE NEGATIVE (NEGATIVE); NITRITE,URINE POSITIVE (NEGATIVE); PH,URINE 5.5 (5 - 7); PROTEIN,URINE DIPSTICK >=300 (NEGATIVE); URINE UROBILINOGEN 0.2 mg/dL (0.2 - 1)
[2023-10-31 22:10] LABS: BACTERIA,URINE MANY /HPF; EPITHELIAL CELLS,URINE FEW /LPF; WBC,URINE (MAN) 21-50 /HPF (0-5)
[2023-10-31] MEDS ORDERED: Morphine 4mg INJECTION 4 MG/ML INJ IV PRN (22:30)
[2023-10-31] MEDS ORDERED: ONDANSETRON HCL INJ 2MG/ML 2ML 2 MG/ML VIAL IV PRN (22:30)
[2023-10-31 22:51] VITALS: PULSE 97; RESP 18; O2SAT 97
[2023-11-01] VITALS (10 sets, daily range): BP systolic 116–134; BP diastolic 61–76; PULSE 84–131; RESP 18–21; TEMP 98.5–103; O2SAT 95–98
[2023-11-01] MEDS: SODIUM CHLORIDE 0.9% 1000ML 1,000 ML IV SCH (01:41)
[2023-11-01 05:28] LABS: BASOPHILS # (AUTO) 0.1 (0.0-0.1); BASOPHILS % 0.2 % (0.0-1.0); HEMATOCRIT 40.9 % (38.2-49.6); HEMOGLOBIN 13.6 g/dL (14.0-18.0); LYMPHOCYTES # (AUTO) 1.2 (1.0-3.2); LYMPHOCYTES % 5.3 % (18.0-39.1); MEAN CORPUSCULAR HEMOGLOBIN 29.5 pg (28-32); MEAN CORPUSCULAR HGB CONC 33.3 g/dL (31-35); MEAN CORPUSCULAR VOLUME 88.7 fL (81-99); MONOCYTES # (AUTO) 1.4 (0.2-0.8); MONOCYTES % 6.3 % (4.4-11.3); NEUTROPHILS # (AUTO) 19.1 (2.1-6.9); NEUTROPHILS % 85.6 % (38.7-80.0); PLATELET COUNT 138 x10e3/uL (140-360); RED BLOOD COUNT 4.61 x10e6/uL (4.3-5.7); RED CELL DISTRIBUTION WIDTH 14.4 % (11.7-14.4); WHITE BLOOD COUNT 22.26 x10e3/uL (4.8-10.8)
[2023-11-01] MEDS: METOPROLOL TARTRATE 25 MG TAB PO SCH (05:44)
[2023-11-01] MEDS: METOPROLOL TARTRATE INJ 1 MG/ML VIAL IV ONE (05:45)
[2023-11-01 05:56] LABS: ALBUMIN 3.2 g/dL (3.5-5.0); ANION GAP 17.7 mmol/L (8-16); BILIRUBIN,TOTAL 0.8 mg/dL (0.2-1.2); CALCIUM 9.4 mg/dL (8.4-10.2); CREATININE, SERUM 1.31 mg/dL (0.72-1.25); POTASSIUM 3.7 mmol/L (3.5-5.1); TOTAL PROTEIN 6.5 g/dL (6.5-8.1)
[2023-11-01 06:28] LABS: TROPONIN I 0.016 ng/mL (0-0.300)
[2023-11-01] MEDS ORDERED: HEPARIN 25,000 UNIT/D5W 250ML 1,000 UNIT in DEXTROSE 5% 250ML 250 ML IV SCH (07:45)
[2023-11-01] MEDS ORDERED: DEXTROSE 50% SYRINGE 50 ML IV PRN (07:45)
[2023-11-01] MEDS: SENNOSIDES 8.6 MG TAB PO SCH (09:00)
[2023-11-01] MEDS ORDERED: SIMVASTATIN 40 MG TAB PO SCH (09:00)
[2023-11-01] MEDS ORDERED: HEPARIN SOD (PORCINE) 1000 UNIT/ML SDV ONE (09:12)
[2023-11-01] MEDS ORDERED: PIPERACILLIN/TAZOBACTAM 3.375 GM VIAL ONE (09:12)
[2023-11-01] MEDS ORDERED: METOPROLOL TARTRATE 25 MG TAB ONE (09:12)
[2023-11-01] MEDS ORDERED: METOPROLOL TARTRATE INJ 1 MG/ML VIAL ONE (09:12)
[2023-11-01] MEDS ORDERED: Sodium Chloride 0.9% 50ML Bag ONE (09:12)
[2023-11-01] MEDS ORDERED: SODIUM CHLORIDE 0.9% 1000 ML BAG ONE (09:12)
[2023-11-01 09:21] LABS: BAND NEUTROPHILS % (MANUAL) 6 %; LYMPHOCYTES % (MANUAL) 9 % (19-48); MONOCYTES % (MANUAL) 6 % (3.4-9.0); NEUTROPHILS % (MANUAL) 79 % (40-74); PLATELET ESTIMATE SLIGHTLY DECREASED; PLATELET MORPHOLOGY COMMENT NORMAL; RBC MORPHOLOGY COMMENT NORMAL
[2023-11-01] MEDS: DOCUSATE SODIUM 100 MG CAP PO SCH (10:27)
[2023-11-01] MEDS: ASPIRIN 81 MG ENTERIC COATED PO SCH (10:27)
[2023-11-01] MEDS: HEPARIN 25,000 UNIT/D5W 250ML 1,000 UNIT in DEXTROSE 5% 250ML 250 ML IV SCH (10:35)
[2023-11-01] MEDS: HEPARIN SOD (PORCINE) 5,000 UNIT/ML VIAL IV ONE (10:40)
[2023-11-01] MEDS ORDERED: IOPAMIDOL 370 MG/ML 100 ML INFUS..BTL INJ ONE (13:15)
[2023-11-01] MEDS ORDERED: SODIUM CHLORIDE 0.9% INJ 100 ML BAG ONE (13:15)
[2023-11-01] MEDS: INSULIN LISPRO 100 UNIT/1 ML 3ML VIAL SQ SCH (13:54)
[2023-11-01 17:35] LABS: CREATINE KINASE 296 IU/L (30-200)
[2023-11-01 17:48] LABS: TROPONIN I < 0.05 ng/mL (0.0-0.40)
[2023-11-01] MEDS: CRESTOR 10MG PO SCH (21:25)
[2023-11-01] MEDS: INSULIN GLARGINE 100 UNITS/ML VIAL SQ SCH (21:38)
[2023-11-01] MEDS: ACETAMINOPHEN 325 MG TAB PO PRN (23:43)
[2023-11-02] VITALS (8 sets, daily range): BP systolic 99–136; BP diastolic 52–80; PULSE 60–120; RESP 17–18; TEMP 98.7–102.1; O2SAT 95–98
[2023-11-02 05:36] LABS: BASOPHILS # (AUTO) 0.1 (0.0-0.1); BASOPHILS % 0.4 % (0.0-1.0); EOSINOPHILS % 0.1 % (0.0-6.0); HEMOGLOBIN 11.6 g/dL (14.0-18.0); LYMPHOCYTES % 7.2 % (18.0-39.1); MEAN CORPUSCULAR HEMOGLOBIN 28.6 pg (28-32); MEAN CORPUSCULAR HGB CONC 32.2 g/dL (31-35); MEAN CORPUSCULAR VOLUME 88.7 fL (81-99); MONOCYTES # (AUTO) 0.8 (0.2-0.8); NEUTROPHILS % 82.3 % (38.7-80.0); PLATELET COUNT 119 x10e3/uL (140-360); RED BLOOD COUNT 4.06 x10e6/uL (4.3-5.7); RED CELL DISTRIBUTION WIDTH 14.2 % (11.7-14.4); WHITE BLOOD COUNT 13.39 x10e3/uL (4.8-10.8)
[2023-11-02 06:13] LABS: ALBUMIN 2.4 g/dL (3.5-5.0); ALBUMIN/GLOBULIN RATIO 0.8 (0.8-2.0); ANION GAP 13.4 mmol/L (8-16); BILIRUBIN,TOTAL 0.5 mg/dL (0.2-1.2); CALCIUM 8.5 mg/dL (8.4-10.2); CREATININE, SERUM 1.5 mg/dL (0.72-1.25); MAGNESIUM 2.2 MG/DL (1.3-2.1); TOTAL PROTEIN 5.5 g/dL (6.5-8.1)
[2023-11-02 06:14] LABS: POTASSIUM 3.4 mmol/L (3.5-5.1)
[2023-11-02] MEDS: POLYETHYLENE GLYCOL 3350 17 GM PACK PO SCH (09:00)
[2023-11-02] MEDS: BISACODYL 10 MG SUPP PR PRN (10:32)
[2023-11-02 10:36] LABS: BAND NEUTROPHILS % (MANUAL) 3 %; LYMPHOCYTES % (MANUAL) 3 % (19-48); MONOCYTES % (MANUAL) 6 % (3.4-9.0); NEUTROPHILS % (MANUAL) 88 % (40-74); PLATELET ESTIMATE SLIGHTLY DECREASED; PLATELET MORPHOLOGY COMMENT NORMAL; RBC MORPHOLOGY COMMENT NORMAL
[2023-11-02] MEDS ORDERED: ACETAMINOPHEN 325 MG TAB ONE (12:43)
[2023-11-02] MEDS ORDERED: PIPERACILLIN/TAZOBACTAM 3.375 GM VIAL ONE (12:43)
[2023-11-02] MEDS ORDERED: SENNOSIDES 8.6 MG TAB ONE (12:43)
[2023-11-02] MEDS ORDERED: Sodium Chloride 0.9% 50ML Bag ONE (12:43)
[2023-11-02] MEDS ORDERED: BISACODYL 10 MG SUPP PR ONE (12:43)
[2023-11-02] MEDS ORDERED: METOPROLOL TARTRATE 25 MG TAB ONE (12:43)
[2023-11-02] MEDS ORDERED: HEPARIN 25,000 UNIT DRIP IV ONE (12:43)
[2023-11-02] MEDS ORDERED: CRESTOR 10MG PO ONE (19:15)
[2023-11-03] VITALS (8 sets, daily range): BP systolic 125–144; BP diastolic 60–97; PULSE 50–123; RESP 18–19; TEMP 98.8–99.6; O2SAT 95–99
[2023-11-03 06:00] LABS: BASOPHILS % 0.5 % (0.0-1.0); EOSINOPHILS # (AUTO) 0.2 (0.0-0.4); EOSINOPHILS % 1.7 % (0.0-6.0); HEMOGLOBIN 11.9 g/dL (14.0-18.0); LYMPHOCYTES % 11.3 % (18.0-39.1); MEAN CORPUSCULAR HEMOGLOBIN 28.4 pg (28-32); MEAN CORPUSCULAR HGB CONC 32.2 g/dL (31-35); MEAN CORPUSCULAR VOLUME 88.3 fL (81-99); MONOCYTES # (AUTO) 0.6 (0.2-0.8); MONOCYTES % 7.2 % (4.4-11.3); NEUTROPHILS # (AUTO) 6.8 (2.1-6.9); NEUTROPHILS % 78.7 % (38.7-80.0); PLATELET COUNT 120 x10e3/uL (140-360); RED BLOOD COUNT 4.19 x10e6/uL (4.3-5.7); RED CELL DISTRIBUTION WIDTH 14.2 % (11.7-14.4)
[2023-11-03 06:45] LABS: ALBUMIN 2.4 g/dL (3.5-5.0); ALBUMIN/GLOBULIN RATIO 0.7 (0.8-2.0); ANION GAP 12.3 mmol/L (8-16); BILIRUBIN,TOTAL 0.5 mg/dL (0.2-1.2); CALCIUM 8.3 mg/dL (8.4-10.2); CREATININE, SERUM 1.21 mg/dL (0.72-1.25); TOTAL PROTEIN 5.7 g/dL (6.5-8.1)
[2023-11-03 06:50] LABS: POTASSIUM 3.3 mmol/L (3.5-5.1)
[2023-11-03] MEDS ORDERED: MAGNESIUM HYDROXIDE 30 ML UDC ONE (11:51)
[2023-11-03] MEDS ORDERED: ASPIRIN 81 MG ENTERIC COATED PO ONE (11:51)
[2023-11-03] MEDS ORDERED: POTASSIUM CHLORIDE 10MEQ EA ONE (11:52)
[2023-11-03] MEDS ORDERED: BISACODYL 10 MG SUPP PR ONE (11:52)
[2023-11-03] MEDS: POTASSIUM CHLORIDE 10MEQ EA PO ONE (11:54)
[2023-11-03] MEDS: MAGNESIUM HYDROXIDE 30 ML UDC PO ONE (11:54)
[2023-11-03] MEDS: BISACODYL 10 MG SUPP PR ONE (12:10)
[2023-11-03] MEDS ORDERED: APIXABAN 5 MG TABLET ONE ×2 (12:50→17:27)
[2023-11-03] MEDS ORDERED: AMIODARONE HCL 200 MG TAB ONE ×2 (12:50→17:27)
[2023-11-03] MEDS ORDERED: PIPERACILLIN/TAZOBACTAM 3.375 GM VIAL ONE (12:51)
[2023-11-03] MEDS: APIXABAN 5 MG TABLET PO SCH (12:54)
[2023-11-03] MEDS: AMIODARONE HCL 200 MG TAB PO SCH (12:54)
[2023-11-03] MEDS ORDERED: ONDANSETRON HCL 4 MG ORAL DISINTEGRATING TAB PO PRN (13:00)
[2023-11-03] MEDS ORDERED: METOPROLOL TARTRATE 50 MG TAB ONE (17:27)
[2023-11-03] MEDS: METOPROLOL TARTRATE 50 MG TAB PO SCH (17:49)
[2023-11-03] MEDS: INSULIN GLARGINE 100 UNITS/ML VIAL SQ SCH (20:58)
[2023-11-04] VITALS: BP 125/82; PULSE 64; RESP 18; TEMP 99.9; O2SAT 97
[2023-11-04 04:00] VITALS: BP 134/79; PULSE 78; RESP 20; TEMP 98.3; O2SAT 99
[2023-11-04 05:58] LABS: BASOPHILS % 0.4 % (0.0-1.0); EOSINOPHILS # (AUTO) 0.2 (0.0-0.4); EOSINOPHILS % 2.8 % (0.0-6.0); HEMATOCRIT 36.3 % (38.2-49.6); HEMOGLOBIN 11.4 g/dL (14.0-18.0); LYMPHOCYTES % 15.3 % (18.0-39.1); MEAN CORPUSCULAR HEMOGLOBIN 28.1 pg (28-32); MEAN CORPUSCULAR HGB CONC 31.4 g/dL (31-35); MEAN CORPUSCULAR VOLUME 89.6 fL (81-99); MONOCYTES # (AUTO) 0.6 (0.2-0.8); MONOCYTES % 9.3 % (4.4-11.3); NEUTROPHILS # (AUTO) 4.9 (2.1-6.9); NEUTROPHILS % 71.9 % (38.7-80.0); PLATELET COUNT 130 x10e3/uL (140-360); RED BLOOD COUNT 4.05 x10e6/uL (4.3-5.7); RED CELL DISTRIBUTION WIDTH 14.3 % (11.7-14.4); WHITE BLOOD COUNT 6.75 x10e3/uL (4.8-10.8)
[2023-11-04 06:21] LABS: ALBUMIN 2.5 g/dL (3.5-5.0); ALBUMIN/GLOBULIN RATIO 0.7 (0.8-2.0); ANION GAP 13.6 mmol/L (8-16); BILIRUBIN,TOTAL 0.5 mg/dL (0.2-1.2); CALCIUM 8.1 mg/dL (8.4-10.2); CREATININE, SERUM 0.88 mg/dL (0.72-1.25); MAGNESIUM 2.2 MG/DL (1.3-2.1); POTASSIUM 3.6 mmol/L (3.5-5.1); TOTAL PROTEIN 5.9 g/dL (6.5-8.1)
[2023-11-04 08:53] VITALS: BP 144/69; PULSE 78; RESP 18; TEMP 98.5; O2SAT 99
[2023-11-04 09:01] VITALS: BP 144/69; PULSE 78; RESP 18; TEMP 98.5; O2SAT 96
[2023-11-04 11:51] VITALS: BP 132/64; PULSE 57; RESP 18; TEMP 98.3; O2SAT 100
[2023-11-04] MEDS ORDERED: SOD PHOSPHATE/SOD BIPHOSPHATE ENEMA 132 ML BTL PR ONE (12:12)
[2023-11-04] MEDS ORDERED: CITRATE OF MAGNESIA 300ML BOTTLE ONE (12:12)
[2023-11-04] MEDS: CITRATE OF MAGNESIA 300ML BOTTLE PO ONE (12:27)
[2023-11-04] MEDS: MINERAL OIL 132 ML BTL PR ONE (12:35)
[2023-11-04] MEDS ORDERED: DULCOLAX SUPP10 MG PR (15:30)
[2023-11-04] MEDS ORDERED: CIPRO500 MG PO (15:30)
[2023-11-04] MEDS ORDERED: METOPROLOL TART50 MG PO (15:30)
[2023-11-04] MEDS ORDERED: ELIQUIS5 MG PO (15:30)
[2023-11-04] MEDS ORDERED: AMIODARONE HCL200 MG PO ×2 (15:30→15:37)
[2023-11-04] MEDS ORDERED: MIRALAX17 GM PO (15:37)
== END 2023-11-04 16:24 | disposition home or self-care (01) | DRG 872 ==
LOC: ER 19:22 → ERHOLD 22:19 → MED/SURG3 23:47
PROVIDERS: ADMIT Internal Medicine; ATTEND Internal Medicine
DX: A41.9 Sepsis, unspecified organism (principal); N39.0 Urinary tract infection, site not specified; N17.9 Acute kidney failure, unspecified; I48.91 Unspecified atrial fibrillation; B96.5 Pseudomonas (aeruginosa) (mallei) (pseudomallei) as the cause of diseases classified elsewhere; E11.65 Type 2 diabetes mellitus with hyperglycemia; E11.22 Type 2 diabetes mellitus with diabetic chronic kidney disease; I12.9 Hypertensive chronic kidney disease with stage 1 through stage 4 chronic kidney disease, or unspecified chronic kidney disease; I25.10 Atherosclerotic heart disease of native coronary artery without angina pectoris; Z95.5 Presence of coronary angioplasty implant and graft; Z11.52 Encounter for screening for COVID-19; Z79.85 Long-term (current) use of injectable non-insulin antidiabetic drugs; Z79.84 Long term (current) use of oral hypoglycemic drugs; Z79.82 Long term (current) use of aspirin; Z79.4 Long term (current) use of insulin; R65.20 Severe sepsis without septic shock; Z87.442 Personal history of urinary calculi; E78.00 Pure hypercholesterolemia, unspecified; N40.0 Benign prostatic hyperplasia without lower urinary tract symptoms; N18.30 Chronic kidney disease, stage 3 unspecified; D69.6 Thrombocytopenia, unspecified; R53.1 Weakness; Z96.0 Presence of urogenital implants
CPT/HCPCS: 36415; 70496; 70498; 71045; 74176; 80053; 81001; 82550; 82948; 83605; 83690; 83735; 83880; 84484; 85025; 85730; 87040; 87086; 87186; 87400; 93005; 93306; 94799; 99284; J1644; J2543; J7030; J7050; Q9967; U0002

== ENCOUNTER → 2024-02-23 | Outpatient (REF) | payer MEDICARE ==
[~2024-02-23] MED LIST changes: +AMIODARONE HCL200 MG PO; +CIPRO500 MG PO; +DULCOLAX SUPP10 MG PR; +METOPROLOL TART50 MG PO; +MIRALAX17 GM PO
== END ==
LOC: RAD 09:39
PROVIDERS: ATTEND Urology
DX: N02.0 Recurrent and persistent hematuria with minor glomerular abnormality (principal)
CPT/HCPCS: 74018

== ENCOUNTER 2024-10-23 11:03 | Emergency (ER) | payer MEDICARE ==
[~2024-10-23] VITALS: Ht 177.8 cm; Wt 88.1 kg
[2024-10-23 11:10] VITALS: TEMP 97.5; O2SAT 96
[2024-10-23 11:50] VITALS: PULSE 80; RESP 16
== END 2024-10-23 11:55 | disposition home or self-care (01) ==
LOC: FSED 11:12
DX: Z03.89 Encounter for observation for other suspected diseases and conditions ruled out (principal); I10 Essential (primary) hypertension; E11.9 Type 2 diabetes mellitus without complications; E78.5 Hyperlipidemia, unspecified; Z95.5 Presence of coronary angioplasty implant and graft
CPT/HCPCS: 99284

== ENCOUNTER → 2024-10-24 | Outpatient (REF) | payer MEDICARE | LOC: RAD 10:46 | PROVIDERS: ATTEND Urology | DX: N20.0 Calculus of kidney (principal); K80.20 Calculus of gallbladder without cholecystitis without obstruction | CPT/HCPCS: 74018 ==

== ENCOUNTER 2025-03-16 19:29 | Emergency (ER) | payer MEDICARE ==
[~2025-03-16] VITALS: Ht 177.8 cm; Wt 83.9 kg
[2025-03-16 19:43] VITALS: PULSE 77; RESP 18; TEMP 97.3
[2025-03-16] MEDS: TRAMADOL HCL 50 MG TAB PO ONE (20:16)
[2025-03-16] MEDS ORDERED: ULTRAM 50MG50 MG PO (20:54)
[2025-03-16 21:05] VITALS: BP 130/75; PULSE 77; RESP 18; TEMP 97.3; O2SAT 92
== END 2025-03-16 21:05 | disposition home or self-care (01) ==
LOC: FSED 19:56
DX: R07.89 Other chest pain (principal); S20.211A Contusion of right front wall of thorax, initial encounter; W01.0XXA Fall on same level from slipping, tripping and stumbling without subsequent striking against object, initial encounter; Y93.01 Activity, walking, marching and hiking; Y92.89 Other specified places as the place of occurrence of the external cause; J98.11 Atelectasis; K80.20 Calculus of gallbladder without cholecystitis without obstruction; N20.0 Calculus of kidney; N28.1 Cyst of kidney, acquired; I25.10 Atherosclerotic heart disease of native coronary artery without angina pectoris; I10 Essential (primary) hypertension; E11.9 Type 2 diabetes mellitus without complications; E78.5 Hyperlipidemia, unspecified; Z95.5 Presence of coronary angioplasty implant and graft
CPT/HCPCS: 71250; 99283